=== PATIENT | female | born 1935 | race Hispanic/Latino ===

== ENCOUNTER 2017-10-21 04:48 | Inpatient (IN) | payer OTHER ==
[~2017-10-21] VITALS: Ht 149.9 cm; Wt 65.8 kg
[~2017-10-21 04:48] MED LIST: ASPI-1012 PO; CALC-1030 PO; CYAN10009 PO; OMEG1CAP12 PO
[2017-10-21] MEDS ORDERED: ONDANSETRON HCL 4 MG/2 ML VIAL ONE (04:59)
[2017-10-21] MEDS ORDERED: SODIUM CHLORIDE 0.9% 1000ML 1,000 ML IV ONE (04:59)
[2017-10-21 05:19] LABS: BASOPHILS % (AUTO) 0.3 % (0.0-5.0); EOSINOPHILS % (AUTO) 0.1 % (0.0-8.0); MEAN CORPUSCULAR HEMOGLOBIN 29.6 pg (27.0-33.0); MEAN CORPUSCULAR HGB CONC 33.6 g/dL (32.0-36.0); MEAN CORPUSCULAR VOLUME 88.1 fL (79-99); MONOCYTES % (AUTO) 4.2 % (3.0-13.0); NEUTROPHILS % (AUTO) 86.4 % (40.0-77.0); PLATELET COUNT (AUTO) 224 K/uL (130-400); RED BLOOD CELL COUNT(AUTO) 4.77 MIL/uL (4.00-5.50); RED CELL DISTRIBUTION WIDTH 15.2 % (11.0-15.5)
[2017-10-21] MEDS ORDERED: MORPHINE SULFATE 4 MG/1ML SYG ONE (05:31)
[2017-10-21 05:32] LABS: CREATININE 0.9 mg/dL (0.5-1.5); POTASSIUM 3.8 mmol/L (3.5-5.1)
[2017-10-21 05:36] LABS: ALBUMIN 3.8 g/dL (3.5-5.0); BILIRUBIN,TOTAL 0.5 mg/dL (0.2-1.0); TOTAL PROTEIN, SERUM 7.7 g/dL (6.0-8.3)
[2017-10-21] MEDS ORDERED: DEXTROSE 5 % AND 0.9 % NACL 1,000 ML IV ONE (09:41)
[2017-10-21 10:10] VITALS: BP 181/77
[2017-10-21] MEDS ORDERED: CLON0.1T PO (11:25)
[2017-10-21] MEDS ORDERED: LOSA50TA37 PO (11:25)
[2017-10-21] MEDS ORDERED: ONDANSETRON HCL 4 MG/2 ML VIAL IVP PRN (11:45)
[2017-10-21] MEDS ORDERED: POTASSIUM CHLORIDE 20MEQ/100ML 100 ML IV PRN (11:45)
[2017-10-21] MEDS ORDERED: MORPHINE SULFATE 2 MG/ML 1ML SYG IVP PRN (11:45)
[2017-10-21] MEDS ORDERED: POTASSIUM CHLORIDE 10% ELIXIR 20 MEQ/15 ML UDCUP PO PRN (11:45)
[2017-10-21] MEDS ORDERED: POTASSIUM CHLORIDE 20 MEQ ERTAB PO PRN (11:45)
[2017-10-21] MEDS ORDERED: LIDOCAINE HCL-MPF 1% 2ML VIAL IVP PRN (11:45)
[2017-10-21 12:37] VITALS: BP 143/76
[2017-10-21] MEDS: HEPARIN SODIUM 5000UNIT/ML 1ML VIAL SQ SCH ×2 (12:39→23:46)
[2017-10-21] MEDS ORDERED: HYDRALAZINE HCL 20 MG/ML VIAL IV PRN (13:00)
[2017-10-21] MEDS ORDERED: BISACODYL 10 MG SUPP.RECT RC SCH (13:00)
[2017-10-21] MEDS: DEXTROSE 5 % AND 0.9 % NACL 1,000 ML IV SCH (14:35)
[2017-10-21 16:50] VITALS: BP 152/73
[2017-10-21 19:59] VITALS: BP 153/92
[2017-10-21 23:32] VITALS: BP 146/77
[2017-10-22] MEDS: DEXTROSE 5 % AND 0.9 % NACL 1,000 ML IV SCH ×2 (02:45→17:39)
[2017-10-22 03:40] VITALS: BP 144/75
[2017-10-22 05:47] LABS: HEMATOCRIT 38.5 % (36-48); MEAN CORPUSCULAR HEMOGLOBIN 29.2 pg (27.0-33.0); MEAN CORPUSCULAR HGB CONC 32.9 g/dL (32.0-36.0); MEAN CORPUSCULAR VOLUME 88.5 fL (79-99); PLATELET COUNT (AUTO) 183 K/uL (130-400); RED BLOOD CELL COUNT(AUTO) 4.35 MIL/uL (4.00-5.50); RED CELL DISTRIBUTION WIDTH 15.5 % (11.0-15.5); WHITE BLOOD COUNT (AUTO) 6.8 K/uL (4.8-10.8)
[2017-10-22 06:08] LABS: INR 1.02 (0.85-1.15); PARTIAL THROMBOPLASTIN TIME 28.7 SEC (26.3-35.5); PROTHROMBIN TIME 10.7 SEC (9.6-11.6)
[2017-10-22 06:28] LABS: ALBUMIN 2.8 g/dL (3.5-5.0); BILIRUBIN,TOTAL 0.6 mg/dL (0.2-1.0); CREATININE 0.6 mg/dL (0.5-1.5); MAGNESIUM 1.9 mg/dL (1.80-2.40); TOTAL PROTEIN, SERUM 6.2 g/dL (6.0-8.3)
[2017-10-22] MEDS ORDERED: DEXTROSE 5 % AND 0.9 % NACL 1,000 ML IV SCH (07:15)
[2017-10-22 08:01] VITALS: BP 152/88
[2017-10-22] MEDS: HEPARIN SODIUM 5000UNIT/ML 1ML VIAL SQ SCH (11:29)
[2017-10-22 11:40] VITALS: BP 125/72
[2017-10-22 15:30] VITALS: BP 153/72
[2017-10-22 19:33] VITALS: BP 146/67
[2017-10-22 23:29] VITALS: BP 140/78
[2017-10-23] MEDS: HEPARIN SODIUM 5000UNIT/ML 1ML VIAL SQ SCH ×2 (00:01→13:22)
[2017-10-23 03:24] VITALS: BP 144/73
[2017-10-23] MEDS: DEXTROSE 5 % AND 0.9 % NACL 1,000 ML IV SCH (04:43)
[2017-10-23 07:53] VITALS: BP 149/82
[2017-10-23 11:22] VITALS: BP 145/64
[2017-10-23 15:50] VITALS: BP 151/77
== END 2017-10-23 18:25 | disposition home or self-care (01) | DRG 389 ==
LOC: EDH 04:48 → EDHIP 07:44 → WSH 10:00
PROVIDERS: ADMIT Internal Medicine Nephrology; ATTEND Internal Medicine Nephrology
PROC: 0D9670Z Drainage of Stomach with Drainage Device, Via Natural or Artificial Opening (ICD-10-PCS; principal; 2017-10-21)
DX: K56.600 Partial intestinal obstruction, unspecified as to cause (principal); E44.1 Mild protein-calorie malnutrition; E78.5 Hyperlipidemia, unspecified; I10 Essential (primary) hypertension; Z82.0 Family history of epilepsy and other diseases of the nervous system; Z82.3 Family history of stroke; Z82.49 Family history of ischemic heart disease and other diseases of the circulatory system; Z82.5 Family history of asthma and other chronic lower respiratory diseases; Z83.3 Family history of diabetes mellitus; Z87.440 Personal history of urinary (tract) infections; Z90.710 Acquired absence of both cervix and uterus; Z98.41 Cataract extraction status, right eye; Z98.42 Cataract extraction status, left eye
CPT/HCPCS: 36415; 74176; 80053; 82150; 83690; 83735; 84132; 84484; 85025; 85027; 85610; 85730; 93005; J1644; J2270; J2405; J3480; J7030; J7042

== ENCOUNTER 2018-09-29 17:11 | Inpatient (IN) | payer OTHER | END 2018-10-02 12:37 | disposition home or self-care (01) | LOC: EDH 17:11 → 3CH 09-30 02:19 → EDHIP 21:21 | DX: K56.609 Unspecified intestinal obstruction, unspecified as to partial versus complete obstruction (principal); D72.829 Elevated white blood cell count, unspecified ==

== ENCOUNTER 2019-05-07 15:17 | Inpatient (IN) | payer OTHER ==
[~2019-05-07] VITALS: Ht 149.9 cm; Wt 61.0 kg
[~2019-05-07 15:17] MED LIST changes: -ASPI-1012 PO; -CALC-1030 PO; +CLON0.1T PO; -CYAN10009 PO; +LOSA50TA64 PO; +METO5TAB2 PO; -OMEG1CAP12 PO
[2019-05-07 15:41] LABS: APPEARANCE,URINE CLEAR (CLEAR); BILIRUBIN,URINE SMALL (NEGATIVE); COLOR,URINE YELLOW (YELLOW); GLUCOSE, URINE (UA) NEGATIVE (NEGATIVE); KETONES,URINE 5 mg/dL (NEGATIVE); LEUKOCYTE ESTERASE ,URINE SMALL (NEGATIVE); NITRATE,URINE NEGATIVE (NEGATIVE); OCCULT BLOOD,URINE SMALL (NEGATIVE); PROTEIN,URINE 30 mg/dL (NEGATIVE)
[2019-05-07] MEDS ORDERED: ONDANSETRON HCL 4 MG/2 ML VIAL ONE ×2 (15:53→17:36)
[2019-05-07 16:05] LABS: BACTERIA,URINE Moderate /HPF (None Seen)
[2019-05-07 16:06] LABS: MUCUS,URINE Moderate LPF (None Seen)
[2019-05-07] MEDS ORDERED: MORPHINE SULFATE 4 MG/1ML SYG ONE (16:27)
[2019-05-07 16:33] LABS: BASOPHILS % (AUTO) 0.9 % (0.0-5.0); EOSINOPHILS % (AUTO) 0.2 % (0.0-8.0); HEMATOCRIT 41.8 % (36-48); LYMPHOCYTES % (AUTO) 9.7 % (21.0-51.0); MEAN CORPUSCULAR HEMOGLOBIN 30.8 pg (27.0-33.0); MEAN CORPUSCULAR HGB CONC 33.4 g/dL (32.0-36.0); MEAN CORPUSCULAR VOLUME 92.2 fL (79-99); MONOCYTES % (AUTO) 3.5 % (3.0-13.0); NEUTROPHILS % (AUTO) 85.7 % (40.0-77.0); PLATELET COUNT (AUTO) 216 K/uL (130-400); RED BLOOD CELL COUNT(AUTO) 4.53 MIL/uL (4.00-5.50); RED CELL DISTRIBUTION WIDTH 14.5 % (11.0-15.5); WHITE BLOOD COUNT (AUTO) 12.4 K/uL (4.8-10.8)
[2019-05-07 16:43] LABS: POTASSIUM 4.2 mmol/L (3.5-5.1)
[2019-05-07 16:47] LABS: ALBUMIN 4.3 g/dL (3.5-5.0); BILIRUBIN,TOTAL 0.4 mg/dL (0.2-1.0); TOTAL PROTEIN, SERUM 8.4 g/dL (6.0-8.3)
[2019-05-07 16:51] LABS: INR 0.95 (0.85-1.15); PARTIAL THROMBOPLASTIN TIME 25.2 SEC (26.3-35.5)
[2019-05-07] MEDS ORDERED: METOCLOPRAMIDE 10 MG/2 ML VIAL ONE (17:54)
[2019-05-07] MEDS ORDERED: MORPHINE SULFATE 4 MG/1ML SYG IV PRN (18:45)
[2019-05-07] MEDS ORDERED: FAMOTIDINE/PF 20 MG/2 ML VIAL IV ONE (19:25)
[2019-05-07] MEDS ORDERED: CEFOXITIN SODIUM 2 GM VIAL ONE (19:25)
[2019-05-07] MEDS ORDERED: LACTATED RINGERS 1000ML 1,000 ML IV ONE (19:25)
[2019-05-07] MEDS ORDERED: SODIUM CHLORIDE 0.9% 100 ML IV ONE (19:26)
[2019-05-07 21:51] VITALS: BP 150/64
--- NOTE | 2019-05-07 22:00 | NUR ---
Nursing Note Upon arrival to floor pt has NG tube in nose and is stable. Upon moving the pt she became nauseated and threw up. Got pt situated in bed and connected to low intermittent suction for NG tube.
[2019-05-07] MEDS: CEFOXITIN SODIUM 1 GM VIAL IVP SCH (22:10)
[2019-05-07] MEDS: LACTATED RINGERS 1000ML 1,000 ML IV SCH (22:10)
[2019-05-07] MEDS ORDERED: LACT10SO PO (22:16)
[2019-05-07] MEDS ORDERED: AEC81 PO (22:16)
[2019-05-07] MEDS ORDERED: PANT40TA25 PO (22:16)
[2019-05-07] MEDS ORDERED: ONDANSETRON HCL 4 MG/2 ML VIAL IVP PRN (23:15)
[2019-05-08] VITALS: BP 146/65
[2019-05-08] MEDS: CEFOXITIN SODIUM 1 GM VIAL IVP SCH ×2 (02:04→11:00)
[2019-05-08 04:00] VITALS: BP 162/69
[2019-05-08] MEDS: LACTATED RINGERS 1000ML 1,000 ML IV SCH ×2 (05:18→14:31)
[2019-05-08 05:26] LABS: BASOPHILS % (AUTO) 0.6 % (0.0-5.0); EOSINOPHILS % (AUTO) 0.1 % (0.0-8.0); HEMATOCRIT 38.6 % (36-48); LYMPHOCYTES % (AUTO) 13.2 % (21.0-51.0); MEAN CORPUSCULAR HEMOGLOBIN 31.3 pg (27.0-33.0); MEAN CORPUSCULAR HGB CONC 33.8 g/dL (32.0-36.0); MEAN CORPUSCULAR VOLUME 92.6 fL (79-99); MONOCYTES % (AUTO) 8.2 % (3.0-13.0); NEUTROPHILS % (AUTO) 77.9 % (40.0-77.0); PLATELET COUNT (AUTO) 176 K/uL (130-400); RED BLOOD CELL COUNT(AUTO) 4.17 MIL/uL (4.00-5.50); RED CELL DISTRIBUTION WIDTH 14.5 % (11.0-15.5)
[2019-05-08 05:53] LABS: ALBUMIN 3.2 g/dL (3.5-5.0); BILIRUBIN,TOTAL 0.6 mg/dL (0.2-1.0); CREATININE 0.9 mg/dL (0.5-1.5); CRP QUANTITATIVE 42.4 mg/L (0.00-9.0); POTASSIUM 4.6 mmol/L (3.5-5.1); TOTAL PROTEIN, SERUM 6.6 g/dL (6.0-8.3)
[2019-05-08] MEDS: METOCLOPRAMIDE 10 MG/2 ML VIAL IVP SCH ×3 (06:53→17:12)
[2019-05-08 08:17] VITALS: BP 154/62
[2019-05-08] MEDS ORDERED: FAMOTIDINE/PF 20 MG/2 ML VIAL IV SCH (09:00)
--- NOTE | 2019-05-08 09:00 | NUR ---
HAMIDA VALLE FOR DR. CHOUDHURY VISITED WITH PT. POC DISCUSSED. PT HAD A BM AND IS PASSING GAS. RECOMMENDED D/C NGT AND STAR PATIENT IN CLEAR LIQUID.
[2019-05-08 12:00] VITALS: BP 154/62
--- NOTE | 2019-05-08 15:56 | NUR ---
INITIAL: Met with pt and dtr Mitra this afternoon to discuss dcp. Pt mentions that she lives alone. She is independent w ambulation and ADLs. She does not own any DME or receive services. Per pt she feels safe and comfortable to return home at ma. Per dtr, family will take turns checking on and assisting pt if needed. CM to continue to follow and wait for Md recommendations. Addendum: 05/08/19 at 1558 by CHUCKIE SWENSON CM Amended: Links added.
--- NOTE | 2019-05-08 18:51 | NUR ---
DR. MACEY CASTILLO. WAITING CORROSION CONTROL TECHNICIAN BACK.
[2019-05-08] MEDS ORDERED: CLONIDINE HCL 0.1 MG TABLET PO SCH (21:00)
[2019-05-08] MEDS ORDERED: LACTULOSE 20 GM/30 ML UDCUP PO SCH (21:00)
[2019-05-09] MEDS ORDERED: PANTOPRAZOLE SODIUM 40 MG TABLET.DR PO SCH (09:00)
[2019-05-09] MEDS ORDERED: LOSARTAN 50 MG TABLET PO SCH (09:00)
[2019-05-09] MEDS ORDERED: ASPIRIN 81 MG EC TAB PO SCH (09:00)
== END 2019-05-08 19:29 | disposition home or self-care (01) | DRG 389 ==
LOC: EDH 15:17 → EDHIP 18:31 → 3DH 21:51
PROVIDERS: ADMIT Internal Medicine; ATTEND Internal Medicine
PROC: 0D9670Z Drainage of Stomach with Drainage Device, Via Natural or Artificial Opening (ICD-10-PCS; principal; 2019-05-07)
DX: K56.609 Unspecified intestinal obstruction, unspecified as to partial versus complete obstruction (principal); N39.0 Urinary tract infection, site not specified; N17.9 Acute kidney failure, unspecified; I10 Essential (primary) hypertension; Z90.710 Acquired absence of both cervix and uterus; Z83.3 Family history of diabetes mellitus; Z82.5 Family history of asthma and other chronic lower respiratory diseases; Z82.49 Family history of ischemic heart disease and other diseases of the circulatory system; Z82.3 Family history of stroke; Z82.0 Family history of epilepsy and other diseases of the nervous system
CPT/HCPCS: 36415; 74176; 80053; 81001; 82150; 82550; 83690; 84484; 85025; 85610; 85730; 86140; 93005; G0378; J0694; J2270; J2405; J2765; J3490; J7120

== ENCOUNTER → 2019-05-26 | Outpatient (CLI) | payer OTHER ==
[~2019-05-26] MED LIST changes: +AEC81 PO; +LACT10SO PO; -METO5TAB2 PO; +PANT40TA25 PO
== END | disposition home or self-care (01) ==
LOC: SHCH 08:01
PROVIDERS: ATTEND Internal Medicine Cardiovascular Disease
DX: I08.0 Rheumatic disorders of both mitral and aortic valves (principal); I11.9 Hypertensive heart disease without heart failure; I25.10 Atherosclerotic heart disease of native coronary artery without angina pectoris
CPT/HCPCS: 93306

== ENCOUNTER → 2019-05-28 | Outpatient (CLI) | payer OTHER ==
[~2019-05-28] VITALS: Ht 152.4 cm; Wt 61.7 kg
[~2019-05-28] MED LIST changes: +REGADENOSON 0.4 MG/5 ML PF SYG IVP SCH
== END | disposition home or self-care (01) ==
LOC: SHCH 07:42
PROVIDERS: ATTEND Internal Medicine Cardiovascular Disease
DX: I10 Essential (primary) hypertension (principal); I25.10 Atherosclerotic heart disease of native coronary artery without angina pectoris
CPT/HCPCS: 78452; 93017; 96374; A9500 ×2; J2785

== ENCOUNTER 2020-04-29 09:57 | Inpatient (IN) | payer OTHER ==
[~2020-04-29] VITALS: Ht 160 cm; Wt 65.8 kg
[~2020-04-29 09:57] MED LIST changes: -PANT40TA25 PO; +PANT40TA54 PO; -REGADENOSON 0.4 MG/5 ML PF SYG IVP SCH
[2020-04-29 10:12] LABS: BASOPHILS % (AUTO) 0.4 % (0.0-5.0); EOSINOPHILS % (AUTO) 0.3 % (0.0-8.0); HEMATOCRIT 42.2 % (36-48); MEAN CORPUSCULAR HEMOGLOBIN 30.7 pg (27.0-33.0); MEAN CORPUSCULAR HGB CONC 33.4 g/dL (32.0-36.0); MEAN CORPUSCULAR VOLUME 91.9 fL (79-99); MONOCYTES % (AUTO) 11.9 % (3.0-13.0); NEUTROPHILS % (AUTO) 65.1 % (40.0-77.0); PLATELET COUNT (AUTO) 202 K/uL (130-400); RED BLOOD CELL COUNT(AUTO) 4.59 MIL/uL (4.00-5.50); RED CELL DISTRIBUTION WIDTH 13.7 % (11.0-15.5); WHITE BLOOD COUNT (AUTO) 7.9 K/uL (4.8-10.8)
[2020-04-29 10:22] LABS: CREATININE 1.7 mg/dL (0.5-1.5); POTASSIUM 4.1 mmol/L (3.5-5.1)
[2020-04-29 10:27] LABS: ALBUMIN 3.7 g/dL (3.5-5.0); BILIRUBIN,TOTAL 0.6 mg/dL (0.2-1.0)
[2020-04-29] MEDS ORDERED: ONDANSETRON HCL 4 MG/2 ML VIAL ONE ×2 (10:27→13:02)
[2020-04-29 10:33] LABS: APPEARANCE,URINE Turbid (CLEAR); BILIRUBIN,URINE Negative (NEGATIVE); COLOR,URINE Yellow (YELLOW); GLUCOSE, URINE (UA) Negative (NEGATIVE); KETONES,URINE Negative (NEGATIVE); LEUKOCYTE ESTERASE ,URINE Small (NEGATIVE); NITRATE,URINE Negative (NEGATIVE); OCCULT BLOOD,URINE Negative (NEGATIVE); PH,URINE 8.5 (5.0-8.0); PROTEIN,URINE POS 1+ mg/dL (NEGATIVE)
[2020-04-29 10:50] LABS: BACTERIA,URINE Few /HPF (None Seen); MUCUS,URINE Few LPF (None Seen); RBC,URINE None Seen /HPF (0-1)
[2020-04-29 10:51] LABS: AMORPHOUS SEDIMENT,UR Moderate /LPF (None Seen)
[2020-04-29] MEDS ORDERED: CEFTRIAXONE SODIUM 1 GM ONE (12:39)
[2020-04-29 20:30] VITALS: BP 110/75
[2020-04-29] MEDS ORDERED: ONDANSETRON HCL 4 MG/2 ML VIAL IVP PRN (20:45)
[2020-04-29] MEDS ORDERED: MORPHINE SULFATE 4 MG/1ML SYG IVP PRN (20:45)
[2020-04-29] MEDS ORDERED: OMEG-148 PO (21:34)
[2020-04-29] MEDS ORDERED: DOCU-116 PO (21:34)
[2020-04-29] MEDS ORDERED: MULT-1258 PO (21:34)
[2020-04-29 23:51] VITALS: BP 140/78
[2020-04-30 03:51] VITALS: BP 151/72
[2020-04-30 04:20] LABS: HEMATOCRIT 39.5 % (36-48); MEAN CORPUSCULAR HEMOGLOBIN 30.4 pg (27.0-33.0); MEAN CORPUSCULAR HGB CONC 32.7 g/dL (32.0-36.0); MEAN CORPUSCULAR VOLUME 93.2 fL (79-99); RED BLOOD CELL COUNT(AUTO) 4.24 MIL/uL (4.00-5.50); RED CELL DISTRIBUTION WIDTH 13.5 % (11.0-15.5); WHITE BLOOD COUNT (AUTO) 4.8 K/uL (4.8-10.8)
[2020-04-30 04:33] LABS: POTASSIUM 3.9 mmol/L (3.5-5.1)
[2020-04-30 08:22] VITALS: BP 160/89
--- NOTE | 2020-04-30 10:45 | NUR ---
DR. MARTIN AWARE OF CONSULT SPOKE TO MD VIA TELEPHONE REGARDING CONSULT.
[2020-04-30] MEDS: SODIUM CHLORIDE 0.9% 1000ML 1,000 ML IV SCH (11:07)
[2020-04-30 11:26] VITALS: BP 148/72
--- NOTE | 2020-04-30 12:45 | NUR ---
DR. CONSUELO SOTO HERE TO SEE PATIENT. SPOKE TO PATIENT. STATES NO SURGERY INDICATED AT THIS TIME.
--- NOTE | 2020-04-30 13:00 | NUR ---
NG TUBE CLAMPED INSTRUCTED TO NOTIFY NURSING STAFF IF ABDOMINAL DISCOMFORTS NOTED SUCH NAUSEA OR ABDOMINAL PAIN.
[2020-04-30 16:20] VITALS: BP 143/80
--- NOTE | 2020-04-30 17:00 | NUR ---
DR. CORDERO CALLED MD TO REPORT THAT NG TUBE HAS BEEN CLAMPED FOR 4 HOURS, PATIENT REPORTS NO NAUSEA OR ABDOMINAL DISCOMFORTS. NO GASTRIC RESIDUAL NOTED. RECEIVED ORDERS VIA TELEPHONE/RB.
--- NOTE | 2020-04-30 19:18 | NUR ---
INITIAL: Met w pt this afternoon to discuss dcp. Pt mentions that she lives alone. Prior to admission she was independent w ambulation and ADLs. Pt does not own any DME or receive services. Per pt she feels safe and comfortable to return home. Dtr Amy on the phone while interviewing pt. She is able to validate above. Per Amy her sister Mitra will transport home at tx. Amy mentions that family checks in on pt regularly. CM to continue to follow and wait for Md recommendations. Addendum: 04/30/20 at 1920 by CHUCKIE SWENSON CM Amended: Links added.
[2020-04-30 19:40] VITALS: BP 161/77
[2020-04-30 23:55] VITALS: BP 131/69
[2020-05-01] MEDS: SODIUM CHLORIDE 0.9% 1000ML 1,000 ML IV SCH (00:20)
[2020-05-01 03:52] VITALS: BP 140/70
[2020-05-01 04:51] LABS: ALBUMIN 2.8 g/dL (3.5-5.0); BILIRUBIN,TOTAL 0.7 mg/dL (0.2-1.0); CREATININE 0.8 mg/dL (0.5-1.5); POTASSIUM 3.4 mmol/L (3.5-5.1); TOTAL PROTEIN, SERUM 6.1 g/dL (6.0-8.3)
[2020-05-01 08:15] VITALS: BP 157/62
[2020-05-01] MEDS ORDERED: CLONIDINE HCL 0.1 MG TABLET PO SCH (09:00)
[2020-05-01] MEDS ORDERED: LOSARTAN 50 MG TABLET PO SCH (09:00)
[2020-05-01 11:38] VITALS: BP 148/67
[2020-05-01 16:26] VITALS: BP 107/72
--- NOTE | 2020-05-01 16:40 | NUR ---
NOTE DISCHARGE INSTRUCTIONS GIVEN TO PATIENT AT THIS TIME. VERBALIZED UNDERSTANDING. REFER TO DC SUMMARY.
== END 2020-05-01 17:15 | disposition home or self-care (01) | DRG 389 ==
LOC: EDH 09:57 → EDHIP 13:00 → 3AH 19:36
PROVIDERS: ADMIT Internal Medicine Infectious Disease; ATTEND Internal Medicine Infectious Disease
PROC: 0D9670Z Drainage of Stomach with Drainage Device, Via Natural or Artificial Opening (ICD-10-PCS; principal; 2020-04-29)
DX: K56.50 Intestinal adhesions [bands], unspecified as to partial versus complete obstruction (principal); N17.9 Acute kidney failure, unspecified; E66.9 Obesity, unspecified; I10 Essential (primary) hypertension; Z90.710 Acquired absence of both cervix and uterus; Z68.25 Body mass index [BMI] 25.0-25.9, adult
CPT/HCPCS: 36415; 74018; 74176; 80048; 80053; 81001; 82550; 83690; 84484; 85025; 85027; 87088; 93005; G0378; J0696; J2405

== ENCOUNTER 2020-10-18 00:02 | Observation (INO) | payer OTHER ==
[~2020-10-18] VITALS: Ht 154.9 cm; Wt 66.0 kg
[~2020-10-18 00:02] MED LIST changes: +DOCU-116 PO; -LACT10SO PO; +LACT10SO5 PO; +MULT-1258 PO; +OMEG-148 PO
[2020-10-18] MEDS ORDERED: ONDANSETRON HCL 4 MG/2 ML VIAL ONE ×2 (00:03→01:12)
[2020-10-18] MEDS ORDERED: SODIUM CHLORIDE 0.9% 1000ML 1,000 ML IV ONE ×2 (00:03→02:41)
[2020-10-18] MEDS ORDERED: MORPHINE SULFATE 2 MG/ML 1ML SYG ONE (00:09)
[2020-10-18 00:33] LABS: CREATININE 0.9 mg/dL (0.5-1.5); POTASSIUM 4.2 mmol/L (3.5-5.1)
[2020-10-18 00:38] LABS: BILIRUBIN,TOTAL 0.4 mg/dL (0.2-1.0); TOTAL PROTEIN, SERUM 8.4 g/dL (6.0-8.3)
[2020-10-18 00:41] LABS: BASOPHILS % (AUTO) 0.2 % (0.0-5.0); EOSINOPHILS % (AUTO) 0.1 % (0.0-8.0); HEMATOCRIT 44.2 % (36-48); LYMPHOCYTES % (AUTO) 13.4 % (21.0-51.0); MEAN CORPUSCULAR HEMOGLOBIN 30.4 pg (27.0-33.0); MEAN CORPUSCULAR VOLUME 91.9 fL (79-99); MONOCYTES % (AUTO) 3.2 % (3.0-13.0); NEUTROPHILS % (AUTO) 82.8 % (40.0-77.0); PLATELET COUNT (AUTO) 229 K/uL (130-400); RED BLOOD CELL COUNT(AUTO) 4.81 MIL/uL (4.00-5.50); RED CELL DISTRIBUTION WIDTH 13.7 % (11.0-15.5); WHITE BLOOD COUNT (AUTO) 15.3 K/uL (4.8-10.8)
[2020-10-18] MEDS ORDERED: MORPHINE SULFATE 4 MG/1ML SYG ONE (01:07)
[2020-10-18] MEDS ORDERED: DiphenhydrAMINE HCL 50 MG/ML VIAL IV PRN (01:30)
[2020-10-18] MEDS: SODIUM CHLORIDE 0.9% 1000ML 1,000 ML IV SCH ×2 (01:30→16:15)
[2020-10-18] MEDS ORDERED: METOCLOPRAMIDE 10 MG/2 ML VIAL ONE (02:08)
[2020-10-18] MEDS: METOCLOPRAMIDE 10 MG/2 ML VIAL IVP SCH ×3 (06:00→17:45)
[2020-10-18] MEDS: METOPROLOL TARTRATE 1 MG/ML 5ML VIAL IV SCH ×3 (06:15→17:44)
[2020-10-18] MEDS: ENOXAPARIN SODIUM 30 MG/0.3 ML SQ SCH (09:00)
[2020-10-18] MEDS: FAMOTIDINE/PF 20 MG/2 ML VIAL IV SCH ×2 (09:00→21:39)
[2020-10-18 09:23] LABS: CREATININE 0.8 mg/dL (0.5-1.5); PHOSPHORUS 3.3 mg/dL (2.5-4.9); POTASSIUM 4.5 mmol/L (3.5-5.1)
[2020-10-18] MEDS ORDERED: FAMOTIDINE/PF 20 MG/2 ML VIAL IV ONE (10:21)
[2020-10-18] MEDS ORDERED: ENOXAPARIN SODIUM 30 MG/0.3 ML SQ ONE (10:21)
[2020-10-18] MEDS ORDERED: METOPROLOL TARTRATE 1 MG/ML 5ML VIAL IV ONE (10:33)
[2020-10-18 12:47] VITALS: BP 157/58
[2020-10-18 16:06] VITALS: BP 159/69
[2020-10-18 19:48] VITALS: BP 155/77
[2020-10-18 23:12] VITALS: BP 166/73
[2020-10-19] MEDS: METOCLOPRAMIDE 10 MG/2 ML VIAL IVP SCH ×4 (00:50→17:23)
[2020-10-19] MEDS: SODIUM CHLORIDE 0.9% 1000ML 1,000 ML IV SCH ×3 (00:51→16:26)
[2020-10-19] MEDS: METOPROLOL TARTRATE 1 MG/ML 5ML VIAL IV SCH ×4 (00:51→17:23)
[2020-10-19 04:06] VITALS: BP 178/88
[2020-10-19 05:38] LABS: CREATININE 0.8 mg/dL (0.5-1.5); MAGNESIUM 1.7 mg/dL (1.80-2.40); PHOSPHORUS 2.2 mg/dL (2.5-4.9); POTASSIUM 3.6 mmol/L (3.5-5.1)
[2020-10-19 06:15] LABS: BASOPHILS % (AUTO) 0.4 % (0.0-5.0); EOSINOPHILS % (AUTO) 0.7 % (0.0-8.0); HEMATOCRIT 38.9 % (36-48); LYMPHOCYTES % (AUTO) 22.7 % (21.0-51.0); MEAN CORPUSCULAR HEMOGLOBIN 29.9 pg (27.0-33.0); MEAN CORPUSCULAR HGB CONC 32.6 g/dL (32.0-36.0); MEAN CORPUSCULAR VOLUME 91.5 fL (79-99); MONOCYTES % (AUTO) 8.1 % (3.0-13.0); NEUTROPHILS % (AUTO) 67.9 % (40.0-77.0); PLATELET COUNT (AUTO) 181 K/uL (130-400); RED BLOOD CELL COUNT(AUTO) 4.25 MIL/uL (4.00-5.50); RED CELL DISTRIBUTION WIDTH 14.2 % (11.0-15.5); WHITE BLOOD COUNT (AUTO) 9.2 K/uL (4.8-10.8)
[2020-10-19 08:56] VITALS: BP 176/73
[2020-10-19] MEDS ORDERED: ONDANSETRON HCL 4 MG/2 ML VIAL IVP PRN (09:00)
[2020-10-19] MEDS ORDERED: LOSARTAN 50 MG TABLET PO SCH (09:00)
[2020-10-19] MEDS ORDERED: CLONIDINE HCL 0.1 MG TABLET PO SCH (09:00)
[2020-10-19] MEDS: FAMOTIDINE/PF 20 MG/2 ML VIAL IV SCH (10:37)
[2020-10-19] MEDS: ENOXAPARIN SODIUM 30 MG/0.3 ML SQ SCH (10:38)
[2020-10-19 11:06] VITALS: BP 189/73
[2020-10-19 12:15] VITALS: BP 150/63
[2020-10-19] MEDS ORDERED: LACT10SO32 PO (12:55)
[2020-10-19] MEDS ORDERED: MAGNESIUM 2GM PREMIX 50ML 50 ML IV SCH (13:30)
== END 2020-10-19 18:17 | disposition home or self-care (01) ==
LOC: EDH 00:02 → EDHIP 01:27 → INTOOBSV 01:27 → 4AH 12:13 → 3AH 10-19 00:25
PROVIDERS: ADMIT Internal Medicine; ATTEND Internal Medicine
DX: K56.609 Unspecified intestinal obstruction, unspecified as to partial versus complete obstruction (principal); Z20.822 Contact with and (suspected) exposure to COVID-19; R11.2 Nausea with vomiting, unspecified; I10 Essential (primary) hypertension; Z87.19 Personal history of other diseases of the digestive system; Z90.710 Acquired absence of both cervix and uterus; Z79.82 Long term (current) use of aspirin; Z79.899 Other long term (current) drug therapy
CPT/HCPCS: 36415 ×2; 74018; 74176; 80048; 80053; 83605; 83735 ×2; 83880; 84100 ×2; 84484; 85025 ×2; 87426; 93005; 96361 ×2; 96365; 96366; 96372; 96375; 96376 ×2; 99285; G0378 ×39; J1650 ×2; J2270; J2405 ×2; J2765 ×6; J3475; J3490 ×8; J7030 ×3

== ENCOUNTER 2021-04-26 00:53 | Inpatient (IN) | payer OTHER ==
[~2021-04-26] VITALS: Ht 152.4 cm; Wt 64.9 kg
[2021-04-26] VITALS (11 sets, daily range): BP systolic 138–199; BP diastolic 45–97
[~2021-04-26 00:53] MED LIST changes: -AEC81 PO; -DOCU-116 PO; +LACT10SO32 PO; -LACT10SO5 PO; -MULT-1258 PO; -PANT40TA54 PO
[2021-04-26 01:15] LABS: BASOPHILS % (AUTO) 0.2 % (0.0-5.0); EOSINOPHILS % (AUTO) 0.2 % (0.0-8.0); HEMATOCRIT 41.1 % (36-48); LYMPHOCYTES % (AUTO) 14.6 % (21.0-51.0); MEAN CORPUSCULAR HEMOGLOBIN 30.7 pg (27.0-33.0); MEAN CORPUSCULAR HGB CONC 34.1 g/dL (32.0-36.0); MEAN CORPUSCULAR VOLUME 90.1 fL (79-99); MONOCYTES % (AUTO) 4.8 % (3.0-13.0); NEUTROPHILS % (AUTO) 79.8 % (40.0-77.0); PLATELET COUNT (AUTO) 212 K/uL (130-400); RED BLOOD CELL COUNT(AUTO) 4.56 MIL/uL (4.00-5.50); RED CELL DISTRIBUTION WIDTH 13.6 % (11.0-15.5); WHITE BLOOD COUNT (AUTO) 13.7 K/uL (4.8-10.8)
[2021-04-26 01:22] LABS: PROTHROMBIN TIME 10.9 SEC (9.6-11.6)
[2021-04-26 01:23] LABS: PARTIAL THROMBOPLASTIN TIME 26.1 SEC (26.3-35.5); POTASSIUM 3.6 mmol/L (3.5-5.1)
[2021-04-26 01:28] LABS: ALBUMIN 3.9 g/dL (3.5-5.0); BILIRUBIN,TOTAL 0.5 mg/dL (0.2-1.0); TOTAL PROTEIN, SERUM 7.9 g/dL (6.0-8.3)
[2021-04-26] MEDS ORDERED: ONDANSETRON 4MG INJ ONE ×2 (01:50→04:57)
[2021-04-26] MEDS ORDERED: MORPHINE 2 MG SYG ONE (01:51)
[2021-04-26] MEDS ORDERED: FAMOTIDINE 20MG VIAL IV ONE ×2 (01:51→02:00)
[2021-04-26] MEDS ORDERED: ONDANSETRON 4MG INJ IVP ONE (02:00)
[2021-04-26] MEDS ORDERED: MORPHINE 2 MG SYG IVP ONE (02:00)
[2021-04-26] MEDS ORDERED: 0.9%NACL 1000ML 1,000 ML IV ONE ×3 (02:00→05:09)
[2021-04-26] MEDS ORDERED: IOHEXOL 350 MG/ML 100ML INFUS..BTL IV ONE (03:04)
[2021-04-26] MEDS ORDERED: ACETAMINOPHEN 325 MG TAB PO PRN ×2 (05:00)
[2021-04-26] MEDS ORDERED: ONDANSETRON 4MG INJ IV PRN (05:00)
[2021-04-26] MEDS ORDERED: LACTULOSE 20 GM/30 ML UDCUP PO PRN (05:00)
[2021-04-26] MEDS: 0.9%NACL 1000ML 1,000 ML IV SCH ×2 (05:14→09:30)
[2021-04-26] MEDS ORDERED: CLON0.1T PO (05:21)
[2021-04-26] MEDS ORDERED: LOSA50TA64 PO (05:21)
[2021-04-26] MEDS ORDERED: FISH1CAP50 PO (05:21)
[2021-04-26] MEDS: MORPHINE 2 MG SYG IV PRN ×2 (05:45→18:18)
[2021-04-26] MEDS: FAMOTIDINE 20MG VIAL IV SCH ×2 (09:14→20:46)
[2021-04-26] MEDS: ENOXAPARIN SODIUM 40 MG/0.4 ML SYRINGE SQ SCH (09:14)
[2021-04-26] MEDS: HYDRALAZINE 20MG/ML VIAL IV PRN ×2 (09:14→18:18)
[2021-04-27] VITALS (7 sets, daily range): BP systolic 118–177; BP diastolic 70–85
[2021-04-27] MEDS: 0.9%NACL 1000ML 1,000 ML IV SCH ×3 (00:17→20:07)
[2021-04-27 03:19] LABS: BILIRUBIN,URINE Negative (NEGATIVE); COLOR,URINE Yellow (YELLOW); GLUCOSE, URINE (UA) Negative (NEGATIVE); KETONES,URINE 40 mg/dL (NEGATIVE); LEUKOCYTE ESTERASE ,URINE Negative (NEGATIVE); NITRATE,URINE Negative (NEGATIVE); OCCULT BLOOD,URINE Negative (NEGATIVE); PH,URINE 6.5 (5.0-8.0); PROTEIN,URINE Negative (NEGATIVE); UROBILINOGEN,URINE 0.2 mg/dL (0.2-1.0)
[2021-04-27 03:20] LABS: APPEARANCE,URINE CLEAR (CLEAR)
[2021-04-27] MEDS: FAMOTIDINE 20MG VIAL IV SCH ×2 (09:07→20:07)
[2021-04-27] MEDS: ENOXAPARIN SODIUM 40 MG/0.4 ML SYRINGE SQ SCH (09:07)
[2021-04-27 09:38] LABS: BASOPHILS % (AUTO) 0.3 % (0.0-5.0); EOSINOPHILS % (AUTO) 1.2 % (0.0-8.0); HEMATOCRIT 39.7 % (36-48); LYMPHOCYTES % (AUTO) 23.3 % (21.0-51.0); MEAN CORPUSCULAR HGB CONC 32.7 g/dL (32.0-36.0); MEAN CORPUSCULAR VOLUME 94.5 fL (79-99); MONOCYTES % (AUTO) 11.7 % (3.0-13.0); NEUTROPHILS % (AUTO) 63.4 % (40.0-77.0); PLATELET COUNT (AUTO) 169 K/uL (130-400); RED CELL DISTRIBUTION WIDTH 14.3 % (11.0-15.5); WHITE BLOOD COUNT (AUTO) 6.8 K/uL (4.8-10.8)
[2021-04-27 09:50] LABS: CREATININE 0.7 mg/dL (0.5-1.5); POTASSIUM 3.8 mmol/L (3.5-5.1)
[2021-04-27] MEDS: HYDRALAZINE 20MG/ML VIAL IV PRN (20:36)
[2021-04-28] VITALS (7 sets, daily range): BP systolic 119–182; BP diastolic 59–85
[2021-04-28] MEDS: 0.9%NACL 1000ML 1,000 ML IV SCH ×2 (07:00→17:10)
[2021-04-28] MEDS ORDERED: METOPROLOL TARTRATE 1 MG/ML 5ML VIAL IV SCH (07:30)
[2021-04-28 08:27] LABS: CREATININE 0.6 mg/dL (0.5-1.5); MAGNESIUM 1.9 mg/dL (1.80-2.40); POTASSIUM 3.5 mmol/L (3.5-5.1)
[2021-04-28] MEDS: FAMOTIDINE 20MG VIAL IV SCH ×2 (09:18→19:50)
[2021-04-28] MEDS: ENOXAPARIN SODIUM 40 MG/0.4 ML SYRINGE SQ SCH (09:18)
[2021-04-28] MEDS ORDERED: METOPROLOL TARTRATE 1 MG/ML 5ML VIAL IV PRN (09:30)
[2021-04-28] MEDS ORDERED: CLONIDINE 0.1 MG/ 24 HR PATCH TD SCH (11:30)
[2021-04-28] MEDS ORDERED: DiphenhydrAMINE HCL 50 MG/ML VIAL ONE (16:20)
[2021-04-28] MEDS ORDERED: DiphenhydrAMINE HCL 50 MG/ML VIAL IM ONE (16:30)
[2021-04-28] MEDS ORDERED: MAGNESIUM 2GM PREMIX 50ML 50 ML IV PRN (19:30)
[2021-04-28] MEDS ORDERED: KCL 20 MEQ ERTAB PO PRN (19:30)
[2021-04-28] MEDS ORDERED: POTASSIUM CHLORIDE 10% ELIXIR 20 MEQ/15 ML UDCUP PO PRN (19:30)
[2021-04-28] MEDS ORDERED: LIDOCAINE HCL-MPF 1% 2ML VIAL IV PRN (19:30)
[2021-04-28] MEDS: HYDRALAZINE 20MG/ML VIAL IV PRN (19:45)
[2021-04-28 19:46] LABS: MAGNESIUM 2.1 mg/dL (1.80-2.40); POTASSIUM 3.3 mmol/L (3.5-5.1)
[2021-04-28] MEDS ORDERED: FUROSEMIDE 20MG VIAL IV ONE (20:00)
[2021-04-28] MEDS: METOPROLOL TARTRATE 1 MG/ML 5ML VIAL IV SCH ×2 (20:44→23:53)
[2021-04-28] MEDS: POTASSIUM CHLORIDE 20MEQ/100ML 100 ML IV PRN (21:10)
[2021-04-29] MEDS: POTASSIUM CHLORIDE 20MEQ/100ML 100 ML IV PRN (01:03)
[2021-04-29] MEDS: 0.9%NACL 1000ML 1,000 ML IV SCH ×2 (01:49→19:53)
[2021-04-29] MEDS: METOPROLOL TARTRATE 1 MG/ML 5ML VIAL IV SCH ×6 (03:51→23:41)
[2021-04-29 04:00] VITALS: BP 168/64
[2021-04-29 07:54] VITALS: BP 163/75
[2021-04-29] MEDS: FAMOTIDINE 20MG VIAL IV SCH ×2 (08:48→19:57)
[2021-04-29] MEDS: ENOXAPARIN SODIUM 40 MG/0.4 ML SYRINGE SQ SCH (08:48)
[2021-04-29 11:53] VITALS: BP 172/71
[2021-04-29 15:41] VITALS: BP 140/68
[2021-04-29 20:00] VITALS: BP 147/72
[2021-04-30] VITALS: BP 143/59
[2021-04-30 04:00] VITALS: BP 141/69
[2021-04-30] MEDS: METOPROLOL TARTRATE 1 MG/ML 5ML VIAL IV SCH ×5 (04:06→20:32)
[2021-04-30 08:00] VITALS: BP 126/69
[2021-04-30] MEDS: ENOXAPARIN SODIUM 40 MG/0.4 ML SYRINGE SQ SCH (09:46)
[2021-04-30] MEDS: FAMOTIDINE 20MG VIAL IV SCH ×2 (09:46→20:32)
[2021-04-30] MEDS: 0.9%NACL 1000ML 1,000 ML IV SCH (11:05)
[2021-04-30 12:00] VITALS: BP 141/61
[2021-04-30 16:00] VITALS: BP 158/63
[2021-04-30 20:00] VITALS: BP 131/48
[2021-05-01] VITALS: BP 147/60
[2021-05-01] MEDS: 0.9%NACL 1000ML 1,000 ML IV SCH (01:12)
[2021-05-01] MEDS: METOPROLOL TARTRATE 1 MG/ML 5ML VIAL IV SCH ×4 (01:13→11:31)
[2021-05-01 04:00] VITALS: BP 114/66
[2021-05-01 08:00] VITALS: BP 131/63
[2021-05-01] MEDS: FAMOTIDINE 20MG VIAL IV SCH (08:10)
[2021-05-01] MEDS: ENOXAPARIN SODIUM 40 MG/0.4 ML SYRINGE SQ SCH (08:12)
[2021-05-01] MEDS ORDERED: FISH OIL 1000 MG/CAP PO SCH (09:00)
[2021-05-01] MEDS ORDERED: LOSARTAN 50 MG TABLET PO SCH (09:00)
[2021-05-01] MEDS ORDERED: CLONIDINE HCL 0.1 MG TABLET PO SCH (09:00)
[2021-05-01 12:00] VITALS: BP 139/54
== END 2021-05-01 12:00 | disposition home or self-care (01) | DRG 389 ==
LOC: EDH 00:53 → EDHIP 04:56 → OBSVTOIN 04:56 → 3CH 20:42
PROVIDERS: ADMIT Internal Medicine; ATTEND Internal Medicine
PROC: 0D9670Z Drainage of Stomach with Drainage Device, Via Natural or Artificial Opening (ICD-10-PCS; principal; 2021-04-26)
DX: K56.609 Unspecified intestinal obstruction, unspecified as to partial versus complete obstruction (principal); I47.1 Supraventricular tachycardia; D72.829 Elevated white blood cell count, unspecified; I11.9 Hypertensive heart disease without heart failure; N28.1 Cyst of kidney, acquired; I48.91 Unspecified atrial fibrillation; K57.10 Diverticulosis of small intestine without perforation or abscess without bleeding; I44.7 Left bundle-branch block, unspecified; Z98.42 Cataract extraction status, left eye; Z98.41 Cataract extraction status, right eye; Z79.899 Other long term (current) drug therapy; Z90.710 Acquired absence of both cervix and uterus; Z82.3 Family history of stroke; Z82.0 Family history of epilepsy and other diseases of the nervous system; Z82.5 Family history of asthma and other chronic lower respiratory diseases; Z83.3 Family history of diabetes mellitus; Z82.49 Family history of ischemic heart disease and other diseases of the circulatory system
CPT/HCPCS: 36415; 71045; 74018; 74177; 80048; 80053; 81003; 83690; 83735; 84132; 85025; 85610; 85730; 93005; G0378; J0360; J1200; J1650; J1940; J2405; J3480; J3490; J7030; Q9967

== ENCOUNTER 2021-05-08 00:10 | Inpatient (IN) | payer OTHER ==
[2021-05-08] VITALS (8 sets, daily range): BP systolic 117–148; BP diastolic 59–82
[~2021-05-08] VITALS: Ht 160 cm; Wt 61.8 kg
[~2021-05-08 00:10] MED LIST changes: +FISH1CAP50 PO
[2021-05-08 00:41] LABS: BASOPHILS % (AUTO) 0.4 % (0.0-5.0); EOSINOPHILS % (AUTO) 2.8 % (0.0-8.0); HEMATOCRIT 34.2 % (36-48); LYMPHOCYTES % (AUTO) 19.4 % (21.0-51.0); MEAN CORPUSCULAR HEMOGLOBIN 31.1 pg (27.0-33.0); MEAN CORPUSCULAR HGB CONC 32.5 g/dL (32.0-36.0); MEAN CORPUSCULAR VOLUME 95.8 fL (79-99); MONOCYTES % (AUTO) 3.3 % (3.0-13.0); NEUTROPHILS % (AUTO) 73.5 % (40.0-77.0); PLATELET COUNT (AUTO) 268 K/uL (130-400); RED BLOOD CELL COUNT(AUTO) 3.57 MIL/uL (4.00-5.50); RED CELL DISTRIBUTION WIDTH 14.3 % (11.0-15.5); WHITE BLOOD COUNT (AUTO) 14.1 K/uL (4.8-10.8)
[2021-05-08] MEDS ORDERED: FUROSEMIDE 20MG VIAL IV ONE (01:00)
[2021-05-08 01:17] LABS: B-TYPE NATRIURETIC PEPTIDE 572 pg/mL (0-100)
[2021-05-08 01:49] LABS: APPEARANCE,URINE Clear (CLEAR); BILIRUBIN,URINE Negative (NEGATIVE); COLOR,URINE Yellow (YELLOW); GLUCOSE, URINE (UA) Negative (NEGATIVE); KETONES,URINE Negative (NEGATIVE); LEUKOCYTE ESTERASE ,URINE Trace (NEGATIVE); NITRATE,URINE Negative (NEGATIVE); OCCULT BLOOD,URINE Negative (NEGATIVE); PROTEIN,URINE POS 1+ mg/dL (NEGATIVE); UROBILINOGEN,URINE 0.2 mg/dL (0.2-1.0)
[2021-05-08 02:05] LABS: BACTERIA,URINE Few /HPF (None Seen); RBC,URINE 0-1 /HPF (0-1); SQUAMOUS EPITHELIAL CELL,UR 0-2 /HPF (0-2)
[2021-05-08 02:06] LABS: FINE GRANULAR CASTS,URINE 0-2 /LPF (None Seen)
[2021-05-08 03:40] LABS: BILIRUBIN,TOTAL 0.2 mg/dL (0.2-1.0); CREATININE 0.8 mg/dL (0.5-1.5); POTASSIUM 4.3 mmol/L (3.5-5.1); TOTAL PROTEIN, SERUM 6.7 g/dL (6.0-8.3)
[2021-05-08] MEDS ORDERED: ASPIRIN 325MG TAB ONE (04:27)
[2021-05-08] MEDS ORDERED: NITROGLYCERIN 1GM OINT 1 INCH/1GM TD ONE ×2 (04:27→04:30)
[2021-05-08] MEDS ORDERED: NITROGLYCERIN 0.4 MG SL TAB SL PRN (04:30)
[2021-05-08] MEDS ORDERED: ACETAMINOPHEN 325 MG TAB PO PRN ×2 (04:30)
[2021-05-08] MEDS ORDERED: ONDANSETRON 4MG INJ IV PRN (04:30)
[2021-05-08] MEDS: ASPIRIN 81 MG EC TAB PO SCH ×2 (04:30→08:18)
[2021-05-08] MEDS ORDERED: ASPIRIN 325MG TAB PO ONE (04:30)
[2021-05-08 07:55] LABS: INR 1.03 (0.85-1.15); PROTHROMBIN TIME 11.2 SEC (9.6-11.6)
[2021-05-08 07:57] LABS: PARTIAL THROMBOPLASTIN TIME 24.5 SEC (26.3-35.5)
[2021-05-08] MEDS: FAMOTIDINE 20MG TAB PO SCH ×2 (08:18→19:42)
[2021-05-08 08:19] LABS: RETICULOCYTE % (AUTO) 2.09 % (0.42-2.23)
[2021-05-08] MEDS: ENOXAPARIN SODIUM 40 MG/0.4 ML SYRINGE SQ SCH (08:22)
[2021-05-08 08:37] LABS: % IRON SATURATION 10.4 % (22-44)
[2021-05-08] MEDS ORDERED: FUROSEMIDE 20MG VIAL ONE (09:16)
[2021-05-08] MEDS ORDERED: FUROSEMIDE 20MG VIAL IV SCH (14:00)
[2021-05-09 03:41] VITALS: BP 127/65
[2021-05-09 04:09] LABS: HEMATOCRIT 32.3 % (36-48); MEAN CORPUSCULAR HEMOGLOBIN 30.9 pg (27.0-33.0); MEAN CORPUSCULAR HGB CONC 32.2 g/dL (32.0-36.0); MEAN CORPUSCULAR VOLUME 95.8 fL (79-99); RED BLOOD CELL COUNT(AUTO) 3.37 MIL/uL (4.00-5.50); RED CELL DISTRIBUTION WIDTH 14.6 % (11.0-15.5); WHITE BLOOD COUNT (AUTO) 7.2 K/uL (4.8-10.8)
[2021-05-09 06:04] LABS: CREATININE 0.8 mg/dL (0.5-1.5); POTASSIUM 3.7 mmol/L (3.5-5.1)
[2021-05-09 07:57] VITALS: BP 131/75
[2021-05-09] MEDS: ASPIRIN 81 MG EC TAB PO SCH (09:41)
[2021-05-09] MEDS: FAMOTIDINE 20MG TAB PO SCH ×2 (09:41→19:58)
[2021-05-09] MEDS: ENOXAPARIN SODIUM 40 MG/0.4 ML SYRINGE SQ SCH (09:42)
[2021-05-09] MEDS ORDERED: FUROSEMIDE 20 MG TABLET PO SCH (11:30)
[2021-05-09] MEDS: LACTULOSE 20 GM/30 ML UDCUP PO SCH (11:42)
[2021-05-09] MEDS: DOCUSATE SODIUM 100 MG CAP PO SCH (11:42)
[2021-05-09 11:51] VITALS: BP 128/65
[2021-05-09 16:00] VITALS: BP 144/76
[2021-05-09 20:00] VITALS: BP 126/56
[2021-05-10] VITALS: BP 135/67
[2021-05-10 04:00] VITALS: BP 132/74
[2021-05-10 06:44] LABS: BASOPHILS % (AUTO) 0.3 % (0.0-5.0); EOSINOPHILS % (AUTO) 5.5 % (0.0-8.0); HEMATOCRIT 33.9 % (36-48); LYMPHOCYTES % (AUTO) 28.4 % (21.0-51.0); MEAN CORPUSCULAR HEMOGLOBIN 31.1 pg (27.0-33.0); MEAN CORPUSCULAR HGB CONC 32.2 g/dL (32.0-36.0); MEAN CORPUSCULAR VOLUME 96.6 fL (79-99); MONOCYTES % (AUTO) 7.6 % (3.0-13.0); NEUTROPHILS % (AUTO) 57.9 % (40.0-77.0); PLATELET COUNT (AUTO) 274 K/uL (130-400); RED BLOOD CELL COUNT(AUTO) 3.51 MIL/uL (4.00-5.50); RED CELL DISTRIBUTION WIDTH 14.6 % (11.0-15.5); WHITE BLOOD COUNT (AUTO) 6.9 K/uL (4.8-10.8)
[2021-05-10 06:51] LABS: CREATININE 0.8 mg/dL (0.5-1.5); MAGNESIUM 2.2 mg/dL (1.80-2.40); POTASSIUM 4.6 mmol/L (3.5-5.1)
[2021-05-10 07:15] VITALS: BP 139/71
[2021-05-10] MEDS ORDERED: REGADENOSON 0.4 MG/5 ML PF SYG IVP SCH (08:00)
[2021-05-10] MEDS: ASPIRIN 81 MG EC TAB PO SCH ×2 (09:00→11:40)
[2021-05-10] MEDS: ENOXAPARIN SODIUM 40 MG/0.4 ML SYRINGE SQ SCH ×2 (09:00→11:48)
[2021-05-10] MEDS: CARVEDILOL 3.125 MG TABLET PO SCH ×2 (09:00→11:43)
[2021-05-10] MEDS: FAMOTIDINE 20MG TAB PO SCH ×2 (09:00→11:47)
[2021-05-10] MEDS: LISINOPRIL 2.5 MG TABLET PO SCH ×2 (09:00→11:44)
[2021-05-10] MEDS: FUROSEMIDE 20 MG TABLET PO SCH ×2 (09:00→11:45)
[2021-05-10] MEDS: LACTULOSE 20 GM/30 ML UDCUP PO SCH (11:50)
[2021-05-10] MEDS: DOCUSATE SODIUM 100 MG CAP PO SCH (11:50)
[2021-05-10 12:01] VITALS: BP 157/75
[2021-05-10 16:00] VITALS: BP 107/53
[2021-05-10 20:00] VITALS: BP 129/52
[2021-05-11] VITALS (15 sets, daily range): BP systolic 102–146; BP diastolic 52–75
[2021-05-11 05:12] LABS: ALBUMIN 2.8 g/dL (3.5-5.0); BILIRUBIN,TOTAL 0.3 mg/dL (0.2-1.0); CREATININE 0.8 mg/dL (0.5-1.5); POTASSIUM 4.8 mmol/L (3.5-5.1)
[2021-05-11] MEDS: FAMOTIDINE 20MG TAB PO SCH ×2 (08:51→20:00)
[2021-05-11 09:07] LABS: BASOPHILS % (AUTO) 0.6 % (0.0-5.0); EOSINOPHILS % (AUTO) 4.7 % (0.0-8.0); HEMATOCRIT 37.7 % (36-48); LYMPHOCYTES % (AUTO) 27.2 % (21.0-51.0); MEAN CORPUSCULAR HEMOGLOBIN 31.1 pg (27.0-33.0); MEAN CORPUSCULAR HGB CONC 32.4 g/dL (32.0-36.0); MEAN CORPUSCULAR VOLUME 96.2 fL (79-99); MONOCYTES % (AUTO) 6.8 % (3.0-13.0); NEUTROPHILS % (AUTO) 60.2 % (40.0-77.0); PLATELET COUNT (AUTO) 305 K/uL (130-400); RED BLOOD CELL COUNT(AUTO) 3.92 MIL/uL (4.00-5.50); RED CELL DISTRIBUTION WIDTH 14.5 % (11.0-15.5); WHITE BLOOD COUNT (AUTO) 6.4 K/uL (4.8-10.8)
[2021-05-11 09:20] LABS: INR 1.05 (0.85-1.15); PROTHROMBIN TIME 11.4 SEC (9.6-11.6)
[2021-05-11 09:21] LABS: PARTIAL THROMBOPLASTIN TIME 25.7 SEC (26.3-35.5)
[2021-05-11] MEDS: ASPIRIN 81 MG EC TAB PO SCH (09:45)
[2021-05-11] MEDS: LISINOPRIL 2.5 MG TABLET PO SCH ×2 (09:47→20:00)
[2021-05-11] MEDS: CARVEDILOL 3.125 MG TABLET PO SCH ×2 (09:48→19:59)
[2021-05-11] MEDS: DOCUSATE SODIUM 100 MG CAP PO SCH (11:30)
[2021-05-11] MEDS: LACTULOSE 20 GM/30 ML UDCUP PO SCH (11:30)
[2021-05-11] MEDS ORDERED: FENTANYL CITRATE PF 50 MCG/1 ML 2ML VIAL ONE (12:12)
[2021-05-11] MEDS ORDERED: BIVALIRUDIN 250 MG/VIAL IV ONE (12:12)
[2021-05-11] MEDS ORDERED: SODIUM BICARB 50MEQ 50ML VIAL 50 ML ONE (12:12)
[2021-05-11] MEDS ORDERED: MIDAZOLAM HCL 1 MG/ML 2ML VIAL ONE (12:12)
[2021-05-11] MEDS ORDERED: IOHEXOL 350 MG/ML 100ML INFUS..BTL IV ONE (12:12)
[2021-05-11] MEDS ORDERED: NITROGLYCERIN 2 MG VIAL IV ONE (12:12)
[2021-05-11] MEDS ORDERED: LIDOCAINE HCL 400MG/20ML VIAL ONE (12:12)
[2021-05-11] MEDS ORDERED: IOHEXOL-350 50ML VIAL IV ONE (12:12)
[2021-05-11] MEDS ORDERED: ENALAPRILAT DIHYDRATE 1.25 MG/ML 2ML VIAL IVP ONE ×2 (13:05→13:47)
[2021-05-11] MEDS ORDERED: CLOPIDOGREL 300MG TAB ONE (13:34)
[2021-05-11] MEDS ORDERED: FUROSEMIDE 20MG VIAL ONE (13:58)
[2021-05-11] MEDS ORDERED: 0.9%NACL 1000ML 1,000 ML IV SCH (14:00)
[2021-05-11] MEDS ORDERED: ATORVASTATIN 10 MG TABLET PO SCH (21:00)
[2021-05-12 03:47] VITALS: BP 107/55
[2021-05-12 04:11] LABS: HEMATOCRIT 34.1 % (36-48); MEAN CORPUSCULAR HEMOGLOBIN 30.5 pg (27.0-33.0); MEAN CORPUSCULAR HGB CONC 32.6 g/dL (32.0-36.0); MEAN CORPUSCULAR VOLUME 93.7 fL (79-99); RED BLOOD CELL COUNT(AUTO) 3.64 MIL/uL (4.00-5.50); RED CELL DISTRIBUTION WIDTH 14.5 % (11.0-15.5); WHITE BLOOD COUNT (AUTO) 7.3 K/uL (4.8-10.8)
[2021-05-12 04:21] LABS: CREATININE 0.9 mg/dL (0.5-1.5); POTASSIUM 4.1 mmol/L (3.5-5.1)
[2021-05-12 07:15] VITALS: BP 124/57
[2021-05-12] MEDS: ASPIRIN 81 MG EC TAB PO SCH (09:00)
[2021-05-12] MEDS ORDERED: CLOPIDOGREL 75MG TAB PO SCH (09:00)
[2021-05-12] MEDS ORDERED: ASPIRIN 81MG CHEW TAB PO SCH (09:00)
[2021-05-12] MEDS: FUROSEMIDE 20 MG TABLET PO SCH (10:07)
[2021-05-12] MEDS: FAMOTIDINE 20MG TAB PO SCH (10:07)
[2021-05-12] MEDS: CARVEDILOL 3.125 MG TABLET PO SCH (10:09)
[2021-05-12] MEDS: LISINOPRIL 2.5 MG TABLET PO SCH (10:09)
[2021-05-12 11:00] VITALS: BP 150/62
[2021-05-12] MEDS: DOCUSATE SODIUM 100 MG CAP PO SCH (11:30)
[2021-05-12] MEDS: LACTULOSE 20 GM/30 ML UDCUP PO SCH (11:30)
[2021-05-12] MEDS ORDERED: CLOP75TA32 PO (12:45)
[2021-05-12] MEDS ORDERED: ASPI-1443 PO (12:45)
[2021-05-12] MEDS ORDERED: METO-408 PO (12:45)
== END 2021-05-12 15:37 | disposition home or self-care (01) | DRG 246 ==
LOC: EDH 00:10 → EDHIP 04:18 → 4BH 16:19
PROVIDERS: ADMIT Internal Medicine; ATTEND Internal Medicine
PROC: 4A023N7 Measurement of Cardiac Sampling and Pressure, Left Heart, Percutaneous Approach (ICD-10-PCS; principal; 2021-05-11)
PROC: 027034Z Dilation of Coronary Artery, One Artery with Drug-eluting Intraluminal Device, Percutaneous Approach (ICD-10-PCS; 2021-05-11)
PROC: B2111ZZ Fluoroscopy of Multiple Coronary Arteries using Low Osmolar Contrast (ICD-10-PCS; 2021-05-11)
PROC: B2151ZZ Fluoroscopy of Left Heart using Low Osmolar Contrast (ICD-10-PCS; 2021-05-11)
DX: I25.10 Atherosclerotic heart disease of native coronary artery without angina pectoris (principal); I50.43 Acute on chronic combined systolic (congestive) and diastolic (congestive) heart failure; I11.0 Hypertensive heart disease with heart failure; Z20.822 Contact with and (suspected) exposure to COVID-19; R09.02 Hypoxemia; D72.829 Elevated white blood cell count, unspecified; Z60.2 Problems related to living alone; Z79.899 Other long term (current) drug therapy; Z90.710 Acquired absence of both cervix and uterus; Z82.3 Family history of stroke; Z82.0 Family history of epilepsy and other diseases of the nervous system; Z82.5 Family history of asthma and other chronic lower respiratory diseases; Z83.3 Family history of diabetes mellitus; Z82.49 Family history of ischemic heart disease and other diseases of the circulatory system
CPT/HCPCS: 36415; 71045; 78452; 80048; 80053; 80061; 81001; 82550; 82607; 82728; 82746; 82948; 83540; 83550; 83735; 83874; 83880; 84484; 85025; 85027; 85045; 85378; 85610; 85730; 87635; 92920; 93005; 93017; 93306; 93356; 93456; 93458; 96374; A9500; C1760; C1769; C1887; C1894; C9600; C9803; G0378; J0583; J1644; J1650; J1940; J2250; J2785; J3010; J3490; Q9967